=== PATIENT | female | born 1965 | race Caucasian/White ===

== ENCOUNTER → 2018-07-01 | Day surgery (SDC) | payer BC ==
[2018-06-30 15:12] VITALS: BMI 35.0
[~2018-07-01] MED LIST: BUPIVACAINE HCL/PF (5 MG/ML) 30 ML VIAL IJ ONE; BUPIVACAINE HCL/PF 0.25% (2.5MG/ML) 10 ML VIAL IJ ONE; BUPIVACAINE HCL/PF 2.5 MG/ML - 30 ML VIAL IJ ONE; DEXAMETHASONE SOD PHOSPHATE/PF 10 MG/ML SDV ONE; GELATIN SPONGE,ABSORBABLE 1 GM PACKET TP ONE; GUM MASTIC/STORAX/MSAL/ALCOHOL 1 DRP DROPSBTL MC ONE; LACTATED RINGERS SOLUTION 1,000 ML IV SCH; LIDOCAINE 1%/EPI 1:100000 (20 ML MULTI DOSE VIAL) IJ ONE; LIDOCAINE 1%/EPI 1:100000 (20 ML MULTI DOSE VIAL) ONE; MIDAZOLAM HCL 2 MG/2 ML SINGLE DOSE VIAL ONE; ONDANSETRON 4 MG/2 ML VIAL IVPUSH PRN; ONDANSETRON 4 MG/2 ML VIAL ONE; THROMBIN (BOVINE) 5,000 UNIT VIAL TP ONE; THROMBIN (RECOMBINANT) 5,000 UNIT VIAL TP ONE; ceFAZolin SODIUM 1 GM VIAL ONE; methylPREDNISolone ACET (DEPO) 40 MG/1 ML VIAL NR ONE; methylPREDNISolone ACET (DEPO) 40 MG/1 ML VIAL ONE; oxyCODONE HCL 10 MG SUSTAINED ACTING TABLET PO ONE; oxyCODONE HCL 5 MG TABLET ONE; oxyCODONE HCL 5 MG TABLET PO PRN
--- NOTE | 2018-07-01 07:04 | HP ---
History & Physical Update - History History: No Change - Physical Currently as noted:: 4/5 with dorsi/plantar flexion on the left. - Assessment Assessment: No Change - Plan Plan: No Change (H&P in chart. No changes overal to health. Pt is experienceing some weakness this am to left leg since yesterday. No bladder or bowel incontinence.)
[2018-07-01 12:18] VITALS: TEMP 98
[2018-07-01 13:42] VITALS: BP 104/70; PULSE 74
--- NOTE | 2018-07-01 13:42 | OP ---
DATE OF OPERATION: 07/01/2018 PREOPERATIVE DIAGNOSIS: Spinal stenosis at L4-5. POSTOPERATIVE DIAGNOSIS: Spinal stenosis at L4-5. PROCEDURE PERFORMED: Laminectomy, L4-5. SURGEON: Scott Trinidad MD FARMER [employer] NUT CROPS: NEO Queen ESTIMATED BLOOD LOSS: 50 mL INTRAVENOUS FLUIDS: Per Anesthesia. ANESTHESIA: Spinal/TLIP. COMPLICATIONS: None. DISPOSITION: Patient brought to the PACU in stable condition. INDICATION FOR SURGERY: The patient is a 53-year-old female who has been suffering from pain from her back down her leg. X-rays and MRI were completed which noted that she had spinal stenosis at L4-5. She had gone through an exhaustive course of treatment for this, which included medications, physical therapy as well as injections. Unfortunately, her pain continued to persist despite all this. At this point, risks, benefits, and alternatives were discussed, and the patient consented to surgery. DESCRIPTION OF PROCEDURE: Patient was brought to the operating room by the anesthesia staff. After appropriate patient identification was performed, spinal anesthesia was given along with a TLIP block. Patient was able to position herself prone onto the OR table with all areas of bony prominences well padded at this time. Two needles were placed into her back to tony off the L4-5 segment. X-ray was taken to confirm this as correct. [place] were removed, and 10 mL of lidocaine with epinephrine were injected in her back at this time. Her back was prepped and draped in a sterile manner. At this point, a timeout was completed. An incision was made from the top of L4 down to the bottom of L5. Dissection was carried down to the fascia. Fascia was then split open at this time, and appropriate retractors were then placed in. A spinal needle was placed onto the L4 lamina to tony off the L4-5 level. An x-ray was taken to confirm this as correct. The needle was removed, and the microscope was brought in. The interspinous ligament at L4-5 was removed. Portions of the L4 and L5 spinous processes were removed. Portions of the L4 and L5 lamina were removed. The flavum was identified, was removed. A complete decompression was performed such that by the end of the procedure the L5 nerve root appeared to be well decompressed. All bleeding was well controlled at this time. Steroid was placed over the nerve root. FloSeal was placed over that. The fascia was closed with a No. 1 Vicryl suture. Subcutaneous tissues were closed with 2-0 Vicryl suture. Skin was closed with 3-0 Monocryl suture. Dermabond was applied. Steri-Strips were applied. A sterile dressing was applied. Patient was placed supine on the OR bed and brought to the PACU in stable condition. Landy LEI/[id number]
--- NOTE | 2018-07-01 17:05 | OP ---
Operative Note - Note: Operative Date: 07/01/18 Pre-Operative Diagnosis: spinal stenosis Operation: laminectomy of L4-L5 Surgeon: Scott Trinidad Twisting Frame Changer: Georgette Good Anesthesia: Spinal Estimated Blood Loss (mls): 25 Fluid Volume Replaced (mls): 600 Operative Report Dictated: Yes
--- NOTE | 2018-07-02 11:54 | SURG ---
Surgery Blocker And Sewer Note Blocker And Sewer: Georgette Good PA-C Date of Service: 07/01/18 Diagnosis: spinal stenosis Procedure: laminectomy of L4-L5 I was present for the entirety of the operative procedure. For further detail, please refer to operative report. Visit type - Case Type Case Type: Scheduled - Emergency Emergency Visit: No - New patient This patient is new to me today: Yes Date on this admission: 07/01/18 - Critical Care Critical Care patient: No
== END | disposition home or self-care (01) ==
LOC: FASU 06:17
PROVIDERS: ATTEND Orthopaedic Surgery Orthopaedic Surgery of the Spine
PROC: 01NB0ZZ Release Lumbar Nerve, Open Approach (ICD-10-PCS; principal; 2018-07-01 08:30)
DX: M48.061 Spinal stenosis, lumbar region without neurogenic claudication (principal)
CPT/HCPCS: 72100-TC-FY; 76000-TC-FY; 84703; 94760

== ENCOUNTER 2018-09-09 07:29 | Day surgery (SDC) | payer BC ==
[2018-09-08 10:33] VITALS: BMI 35.0
--- NOTE | 2018-09-09 07:09 | HP ---
History & Physical Update - History History: No Change - Physical Physical: No Change - Assessment Assessment: No Change - Plan Plan: No Change (Initial H&P is located in patient's paper chart. No new complaints or medications.)
[2018-09-09] MEDS ORDERED: GABAPENTIN 300 MG CAPSULE (FP) PO STA (07:43)
[2018-09-09] MEDS ORDERED: oxyCODONE HCL 10 MG SUSTAINED ACTING TABLET PO STA (07:43)
[2018-09-09] MEDS ORDERED: BUPIVACAINE HCL/PF (5 MG/ML) 30 ML VIAL IJ ONE (10:48)
[2018-09-09] MEDS ORDERED: MIDAZOLAM HCL 2 MG/2 ML SINGLE DOSE VIAL ONE (10:48)
[2018-09-09] MEDS ORDERED: LIDOCAINE 1%/EPI 1:100000 (20 ML MULTI DOSE VIAL) ONE (11:20)
[2018-09-09] MEDS ORDERED: THROMBIN (BOVINE) 5,000 UNIT VIAL TP ONE ×2 (11:20→12:43)
[2018-09-09] MEDS ORDERED: methylPREDNISolone ACET (DEPO) 40 MG/1 ML VIAL ONE (11:20)
[2018-09-09] MEDS ORDERED: ONDANSETRON 4 MG/2 ML VIAL ONE (12:07)
[2018-09-09] MEDS ORDERED: ceFAZolin SODIUM 1 GM VIAL ONE (12:07)
[2018-09-09] MEDS ORDERED: DEXAMETHASONE SOD PHOSPHATE 4 MG/1 ML VIAL ONE (12:07)
[2018-09-09] MEDS ORDERED: DESFLURANE GAS 240 ML BOTTLE IH ONE (12:30)
[2018-09-09] MEDS ORDERED: methylPREDNISolone ACET (DEPO) 40 MG/1 ML VIAL IM ONE (12:45)
[2018-09-09] MEDS ORDERED: GELATIN, ABSORBABLE 100 EACH SPONGE TP ONE (12:45)
[2018-09-09 14:03] VITALS: TEMP 97.8
--- NOTE | 2018-09-09 14:07 | OP ---
DATE OF OPERATION: 09/09/2018 PREOPERATIVE DIAGNOSIS: Spinal stenosis, L4-L5. POSTOPERATIVE DIAGNOSIS: Spinal stenosis, L4-L5. PROCEDURE PERFORMED: Revision laminectomy, L4-L5. SURGEON: Scott Trinidad MD RESOURCE ROOM SPECIAL EDUCATION TEACHER: NEO Stephenson ESTIMATED BLOOD LOSS: 50 mL. INTRAVENOUS FLUIDS: Per Anesthesia. ANESTHESIA: Spinal/TLIP. COMPLICATIONS: There are none. DISPOSITION: Patient brought to the PACU in stable condition. INDICATIONS FOR SURGERY: The patient is a 53-year-old female who has been suffering from pain from her back down her legs. X-rays and MRI were completed which noted that she has spinal stenosis at L4-L5. She had previously undergone a laminectomy and done well with the surgery. She just recently reherniated. X-rays and MRI were completed which noted that she had a reherniation. She had been taking medications as well as physical therapy, but unfortunately, pain continued to persist despite all this. At this point, risks, benefits, and alternatives were discussed about surgery, and the patient consented to surgery. OPERATIVE NOTE: Patient was brought to the operating room by the anesthesia staff. After appropriate patient identification was performed, spinal anesthesia was given. A TLIP block was also given. The patient was able to position herself prone onto the Abdirahman frame. All areas of bony prominences were well padded at this time. Two needles were placed in the back to tony off the L4-L5 segment. An x-ray was taken to confirm this was correct. The needle was removed, and 10 mL of lidocaine with epinephrine was injected into her back at this time. Her back was prepped and draped in a sterile manner. At this point, a time-out was completed. An incision was made from the top of L4 down to the bottom of L5. Dissection was carried down to the fascia. Fascia was split open at this time. An appropriate retractor was then placed, and a spinal needle was placed onto the L4 lamina to tony off the L4-L5 level. An x-ray was taken to confirm this was correct. The needle was removed, and the microscope was brought in. A portion of the L4-L5 lamina were removed. Scar tissue was noted, it was removed. Portions of the facet was removed. Nerve root was mobilized medially. A disc herniation was noted. By the end of the procedure, the L5 nerve root appeared to be well decompressed. All bleeding was controlled at this time. Steroids were placed over the nerve root. Floseal was placed over that. The fascia was closed with a No. 1 Vicryl suture. The subcutaneous tissues were closed with 2-0 Vicryl suture. Skin was closed with 3 -0 Monocryl suture. Dermabond was applied. Steri-Strips were applied, and sterile dressings applied. Patient was placed supine on the OR bed and brought to the PACU in stable condition. Landy LEI/[id number] MTDD
[2018-09-09 14:14] VITALS: PULSE 69
[2018-09-09] MEDS ORDERED: PROMETHAZINE HCL 25 MG/1 ML VIAL IVPUSH PRN (14:25)
[2018-09-09] MEDS ORDERED: oxyCODONE HCL 5 MG TABLET PO PRN ×2 (14:25)
[2018-09-09] MEDS ORDERED: ONDANSETRON 4 MG/2 ML VIAL IVPUSH PRN (14:25)
--- NOTE | 2018-09-09 14:45 | OP ---
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
--- NOTE | 2018-09-09 14:46 | SURG ---
Surgery Nurse Healthcare Manager Note Nurse Healthcare Manager: Dirk Roe PA-C Date of Service: 09/09/18 Diagnosis: L4/5 disc herniation with radiculopathy Procedure: Revision of L4/5 laminectomy with discectomy I was present for the entirety of the operative procedure. For further detail, please refer to operative report. Visit type - Case Type Case Type: Scheduled - New patient This patient is new to me today: Yes Date on this admission: 09/09/18
[2018-09-09 17:24] VITALS: BP 108/66
--- NOTE | 2018-09-15 15:59 | PATH ---
Surgical Pathology Report Patient Name: JOSE RAFAEL BRYAN Med. Rec. #: [id number] /Age/Gender: 1965 (Age: 53) / F Account: [id number] Location: [facility] Taken: 09/09/2018 Received: 09/09/2018 Reported: 09/15/2018 Physicians: Scott Trinidad M.D. Specimen(s) Received L4-5 DISC Clinical History Spinal stenosis Final Diagnosis L4-5 DISC, LAMINECTOMY: CARTILAGE WITH DEGENERATIVE CHANGES. Electronically Signed Frances Lara M.D. Gross Description Received in formalin labeled "L4-5 disc," is a 1.2 x 1.1 x 0.3 cm aggregate of villasenor fragments of fibrocartilaginous tissue. The specimen is submitted in toto in one cassette. 09/10/201809/10/2018
== END 2018-09-09 16:15 | disposition home or self-care (01) ==
LOC: FASU 07:29
PROVIDERS: ATTEND Orthopaedic Surgery Orthopaedic Surgery of the Spine
PROC: 01NB0ZZ Release Lumbar Nerve, Open Approach (ICD-10-PCS; principal; 2018-09-09 12:19)
DX: M48.061 Spinal stenosis, lumbar region without neurogenic claudication (principal)
CPT/HCPCS: 72100-TC-FY; 88304-TC; 94760